=== PATIENT | male | born 2000 | race Caucasian/White ===

== ENCOUNTER 2023-11-24 11:47 | Inpatient (IN) | payer MEDICARE, MEDICAID ==
[~2023-11-24] VITALS: Ht 180.3 cm; Wt 107.0 kg
[2023-11-24 14:53] LABS: Basophils # (auto) 0 10 ^3/uL (0-0.2); Basophils % (auto) 0.3 % (0.0-2.0); Eosinophils # (auto) 0.1 10 ^3/uL (0-0.8); Eosinophils % (auto) 0.6 % (0.0-7.0); Hematocrit 47.9 % (41.0-53.0); Lymphocytes # (auto) 2.3 10 ^3/uL (0.4-5.4); Lymphocytes % (auto) 16.6 % (10.0-50.0); Mean Corpuscular Hemoglobin 29.1 pg (28.0-32.0); Mean Corpuscular Hgb Conc. 33.3 g/dL (32.0-36.0); Mean Corpuscular Volume 87.3 fL (80.0-100.0); Monocytes # (auto) 0.9 10 ^3/uL (0-1.3); Monocytes % (auto) 6.5 % (0.0-12.0); Neutrophils # (auto) 10.7 10 ^3/uL (1.6-8.6); Nucleated Red Blood Cells % 0.2 %; Red Blood Cells 5.48 10^6/uL (4.5-5.90); Red Cell Distribution Width 13.5 % (11.8-14.3); White Blood Cell 14.1 10^3/uL (4.4-10.8)
[2023-11-24 14:57] VITALS: RESP 16; O2SAT 97
[2023-11-24 14:59] LABS: Chloride 106 mmol/L (98-107); Potassium 4.6 mmol/L (3.5-5.1); Sodium 139 mmol/L (136-145)
[2023-11-24 15:00] LABS: Anion Gap 6 (5-15); Calcium 10.2 mg/dL (8.7-10.4); Carbon Dioxide 27 mmol/L (20-30)
[2023-11-24 15:05] LABS: BUN/Creatinine Ratio 15.8 (10.0-20.0); Blood Urea Nitrogen 15 mg/dL (9-23); Glucose 114 mg/dL (74-106)
[2023-11-24 15:11] LABS: INR 1.02 (0.9-1.15); Partial Thromboplastin Time 29.7 SEC (24.5-34.5); Prothrombin Time 10.7 sec (9.3-11.8)
[2023-11-24 15:42] LABS: Urine Bacteria NONE SEEN /hpf (None Seen); Urine Blood Negative /uL (Negative); Urine Clarity Clear (Clear); Urine Color Yellow (Yellow); Urine Protein, UAD Negative (Negative); Urine Specific Gravity 1.022 (1.001-1.035); Urine Urobilinogen Normal (Negative); Urine WBC 1 /hpf (0 - 3)
[2023-11-24] MEDS: metroNIDAZOLE 500MG/100ML 100 ML IV ONE (18:30)
[2023-11-24] MEDS: levoFLOXacin 500MG 100 ML IV ONE (18:46)
[2023-11-24] MEDS: SODIUM CHLORIDE 0.9% 1,000 ML IV SCH (18:46)
[2023-11-24 19:30] VITALS: PULSE 75; RESP 12; O2SAT 97
[2023-11-24 22:10] VITALS: BP 140/75; PULSE 73; RESP 16; TEMP 98.3; O2SAT 98
[2023-11-24 22:28] LABS: Erythrocyte Sedimentation Rate 2 mm/hr (0-20)
[2023-11-24 23:09] VITALS: PULSE 73; RESP 16; O2SAT 98
[2023-11-24] MEDS: PANTOPRAZOLE 40 MG/10 ML VIAL INJ IV SCH (23:39)
[2023-11-25] VITALS (7 sets, daily range): BP systolic 104–125; BP diastolic 52–69; PULSE 61–86; RESP 14–20; TEMP 97.8–98.6; O2SAT 94–97
[2023-11-25] MEDS: metroNIDAZOLE 500MG/100ML 100 ML IV SCH (05:15)
[2023-11-25 06:24] LABS: Basophils # (auto) 0.1 10 ^3/uL (0-0.2); Basophils % (auto) 0.6 % (0.0-2.0); Eosinophils # (auto) 0.2 10 ^3/uL (0-0.8); Eosinophils % (auto) 2.2 % (0.0-7.0); Hematocrit 44.5 % (41.0-53.0); Lymphocytes # (auto) 3.5 10 ^3/uL (0.4-5.4); Lymphocytes % (auto) 30.6 % (10.0-50.0); Mean Corpuscular Hemoglobin 29.6 pg (28.0-32.0); Mean Corpuscular Hgb Conc. 33.8 g/dL (32.0-36.0); Mean Corpuscular Volume 87.5 fL (80.0-100.0); Monocytes % (auto) 9.1 % (0.0-12.0); Neutrophils # (auto) 6.5 10 ^3/uL (1.6-8.6); Neutrophils % (auto) 57.5 % (37.0-80.0); Red Blood Cells 5.08 10^6/uL (4.5-5.90); Red Cell Distribution Width 13.8 % (11.8-14.3); White Blood Cell 11.3 10^3/uL (4.4-10.8)
[2023-11-25 06:40] LABS: Alanine Aminotransferase 53 U/L (7-40); Albumin 4.2 g/dL (3.2-4.8); Alkaline Phosphatase 62 U/L (46-116); Anion Gap 5 (5-15); Aspartate Aminotransferase 25 U/L (13-40); Blood Urea Nitrogen 10 mg/dL (9-23); Carbon Dioxide 28 mmol/L (20-30); Chloride 108 mmol/L (98-107); Glucose 89 mg/dL (74-106); LDL Cholesterol 100 mg/dL (< 100); Potassium 4.2 mmol/L (3.5-5.1); Sodium 141 mmol/L (136-145); Triglycerides 231 mg/dL (< 150)
[2023-11-25 06:41] LABS: Cholesterol 158 mg/dL (< 200); HDL Cholesterol 24 mg/dL (40-59)
[2023-11-25 06:42] LABS: Bilirubin, Total 0.7 mg/dL (0.2-1.0); Total Protein 6.6 g/dL (5.7-8.2)
[2023-11-25 08:44] LABS: Hepatitis B Surface Antigen Negative (Negative)
[2023-11-25 09:05] LABS: Hepatitis C Antibody Negative (Negative)
[2023-11-25] MEDS: levoFLOXacin 500MG 100 ML IV SCH (10:05)
[2023-11-25] MEDS: SODIUM CHLORIDE 0.9% 1,000 ML IV SCH (14:00)
[2023-11-26] VITALS (7 sets, daily range): BP systolic 101–112; BP diastolic 53–71; PULSE 58–85; RESP 16–20; TEMP 97.4–98.3; O2SAT 94–98
[2023-11-26 05:32] LABS: Basophils # (auto) 0 10 ^3/uL (0-0.2); Basophils % (auto) 0.4 % (0.0-2.0); Eosinophils # (auto) 0.3 10 ^3/uL (0-0.8); Hematocrit 43.6 % (41.0-53.0); Hemoglobin 14.7 g/dL (13.5-17.5); Lymphocytes # (auto) 3.1 10 ^3/uL (0.4-5.4); Mean Corpuscular Hemoglobin 29.4 pg (28.0-32.0); Mean Corpuscular Hgb Conc. 33.7 g/dL (32.0-36.0); Mean Corpuscular Volume 87.1 fL (80.0-100.0); Monocytes # (auto) 0.9 10 ^3/uL (0-1.3); Monocytes % (auto) 8.6 % (0.0-12.0); Neutrophils # (auto) 6.4 10 ^3/uL (1.6-8.6); Nucleated Red Blood Cells % 0.1 %; Red Blood Cells 5.01 10^6/uL (4.5-5.90); Red Cell Distribution Width 13.6 % (11.8-14.3); White Blood Cell 10.8 10^3/uL (4.4-10.8)
[2023-11-26 05:39] LABS: Chloride 108 mmol/L (98-107); Potassium 3.8 mmol/L (3.5-5.1); Sodium 140 mmol/L (136-145)
[2023-11-26 05:40] LABS: Anion Gap 6 (5-15); Calcium 9.3 mg/dL (8.5-10.1); Carbon Dioxide 26 mmol/L (20-30)
[2023-11-26 05:45] LABS: BUN/Creatinine Ratio 9.1 (10.0-20.0); Blood Urea Nitrogen 8 mg/dL (9-23); Glucose 94 mg/dL (74-106)
[2023-11-26] MEDS: GOLYTELY 4L KIT PO ONE (13:35)
[2023-11-26] MEDS: ONDANSETRON HCL 4 MG/2 ML VIAL IV PRN (17:37)
[2023-11-27] VITALS (8 sets, daily range): BP systolic 97–130; BP diastolic 6–75; PULSE 58–86; RESP 14–18; TEMP 97.4–98.3; O2SAT 94–99
[2023-11-27] MEDS: MAGNESIUM CITRATE SOLUTION 300 ML BTL PO ONE (05:39)
[2023-11-27] MEDS: GOLYTELY 4L KIT PO ONE (05:45)
[2023-11-27] MEDS ORDERED: ONDANSETRON HCL 4 MG/2 ML VIAL ONE (12:56)
[2023-11-27] MEDS ORDERED: MIDAZOLAM HCL 2MG/2ML 2ml VIAL (1mg/ml) ONE (12:56)
[2023-11-27] MEDS ORDERED: PROPOFOL 10 MG/ML 20 ML IV ONE (12:56)
[2023-11-27] MEDS ORDERED: GLYCOPYRROLATE 0.2 MG/ML 1ML VIAL ONE (13:13)
[2023-11-27] MEDS ORDERED: ePHEDrine SULFATE 50 MG/ML AMP ONE ×2 (13:23→13:26)
[2023-11-27] MEDS ORDERED: HYDROmorphone HCL 2 MG/ML VL/or syr IV PRN (13:45)
[2023-11-27] MEDS ORDERED: ONDANSETRON HCL 4 MG/2 ML VIAL IV PRN (13:45)
[2023-11-28] VITALS (7 sets, daily range): BP systolic 100–134; BP diastolic 64–77; PULSE 68–94; RESP 16–19; TEMP 97.9–98.4; O2SAT 94–98
[2023-11-28 05:49] LABS: Basophils # (auto) 0.1 10 ^3/uL (0-0.2); Basophils % (auto) 0.8 % (0.0-2.0); Eosinophils # (auto) 0.3 10 ^3/uL (0-0.8); Eosinophils % (auto) 2.6 % (0.0-7.0); Hematocrit 41.8 % (41.0-53.0); Lymphocytes # (auto) 2.7 10 ^3/uL (0.4-5.4); Lymphocytes % (auto) 27.3 % (10.0-50.0); Mean Corpuscular Hemoglobin 29.5 pg (28.0-32.0); Mean Corpuscular Hgb Conc. 33.4 g/dL (32.0-36.0); Mean Corpuscular Volume 88.1 fL (80.0-100.0); Monocytes # (auto) 0.9 10 ^3/uL (0-1.3); Neutrophils # (auto) 6.1 10 ^3/uL (1.6-8.6); Neutrophils % (auto) 60.3 % (37.0-80.0); Red Blood Cells 4.75 10^6/uL (4.5-5.90); Red Cell Distribution Width 13.9 % (11.8-14.3)
[2023-11-28 06:10] LABS: Anion Gap 6 (5-15); Carbon Dioxide 26 mmol/L (20-30); Chloride 109 mmol/L (98-107); Potassium 3.8 mmol/L (3.5-5.1); Sodium 141 mmol/L (136-145)
[2023-11-28 06:15] LABS: Glucose 96 mg/dL (74-106)
[2023-11-28 06:16] LABS: BUN/Creatinine Ratio 10.1 (10.0-20.0); Blood Urea Nitrogen 9 mg/dL (9-23)
[2023-11-29 05:00] VITALS: BP 106/61; PULSE 69; RESP 17; TEMP 98.3; O2SAT 95
[2023-11-29 07:00] LABS: INR 1.08 (0.9-1.15); Partial Thromboplastin Time 31.3 SEC (24.5-34.5); Prothrombin Time 11.3 sec (9.3-11.8)
[2023-11-29] MEDS ORDERED: MEPERIDINE HCL (50 MG/ML) 1 ML VIAL ONE (07:40)
[2023-11-29] MEDS ORDERED: fentaNYL CITRATE 100 MCG/2 ML VL ONE (07:40)
[2023-11-29] MEDS ORDERED: DexAMETHasone SOD PHOS 10MG/1ML VIAL INJ ONE (07:41)
[2023-11-29] MEDS ORDERED: ROCURONIUM 10MG/ML 10ML VIAL IV ONE (07:41)
[2023-11-29] MEDS ORDERED: MIDAZOLAM HCL 2MG/2ML 2ml VIAL (1mg/ml) ONE (07:41)
[2023-11-29] MEDS ORDERED: PROPOFOL 10 MG/ML 20 ML IV ONE (07:41)
[2023-11-29] MEDS ORDERED: SODIUM CHLORIDE LOCK 10 ML ONE (07:41)
[2023-11-29] MEDS ORDERED: ONDANSETRON HCL 4 MG/2 ML VIAL ONE (07:41)
[2023-11-29] MEDS: BUPIVACAINE 0.5% P/F INJ 10 ML VIAL ONE (09:38)
[2023-11-29 09:52] VITALS: O2SAT 98
[2023-11-29] MEDS ORDERED: MORPHINE SULFATE INJ 2 MG/ml SYRG IV PRN (10:00)
[2023-11-29] MEDS ORDERED: HYDROmorphone HCL 2 MG/ML VL/or syr IV PRN ×2 (10:00)
[2023-11-29] MEDS: METOCLOPRAMIDE HCL 5MG/ml INJ 2ml VIAL IV PRN (10:48)
[2023-11-29 13:00] VITALS: BP 126/87; PULSE 69; RESP 16; TEMP 97.3; O2SAT 100
[2023-11-29] MEDS ORDERED: METOCLOPRAMIDE HCL 5MG/ml INJ 2ml VIAL IV PRN (13:15)
[2023-11-29] MEDS: HYDROcodone-ACET 5/325MG TAB PO PRN (14:31)
[2023-11-29] MEDS: MORPHINE SULFATE INJ 2 MG/ml SYRG IV PRN ×2 (15:36→20:13)
[2023-11-29 17:00] VITALS: BP 125/94; PULSE 88; RESP 16; TEMP 97.8; O2SAT 98
[2023-11-29 20:00] VITALS: BP 130/89; PULSE 80; RESP 18; RESP 21; TEMP 98.2
[2023-11-29 22:00] VITALS: BP 123/90; PULSE 80; RESP 20; TEMP 98.2; O2SAT 95
[2023-11-30] VITALS (7 sets, daily range): BP systolic 113–138; BP diastolic 63–76; PULSE 69–84; RESP 16–20; TEMP 97.8–99.2; O2SAT 74–98
[2023-11-30 06:46] LABS: Hematocrit 43.7 % (41.0-53.0); Hemoglobin 14.7 g/dL (13.5-17.5)
[2023-11-30] MEDS: GELATIN 1 SPONGE SIZE 100 TOP ONE (13:51)
[2023-11-30] MEDS: HYDROcodone-ACET 5/325MG TAB PO PRN (14:53)
[2023-11-30] MEDS: MAGNESIUM CITRATE SOLUTION 300 ML BTL PO ONE (15:47)
[2023-11-30] MEDS: LIDOCAINE 2% JELLY 11ml (GLYDO) ONE (15:51)
[2023-11-30] MEDS: DOCUSATE SOD 100 MG CAP PO PRN (18:53)
[2023-11-30] MEDS: FLUTICASONE PROP NASAL SPR 0.05 % (50MCG) 16GM EACHNOSTRI SCH (22:33)
[2023-12-01] VITALS (7 sets, daily range): BP systolic 99–123; BP diastolic 47–70; PULSE 69–84; RESP 16–19; TEMP 98.1–98.6; O2SAT 92–96
[2023-12-01] MEDS ORDERED: HYDR-4902 PO ×2 (10:54→11:03)
[2023-12-01] MEDS ORDERED: DOCU-265 PO ×2 (10:54→11:03)
[2023-12-01] MEDS ORDERED: METR-344 PO (11:03)
[2023-12-01] MEDS ORDERED: UROJET2 TOP (11:03)
[2023-12-01] MEDS ORDERED: LEVO500T91 PO (11:03)
[2023-12-01] MEDS: LIDOCAINE 2% TOPICAL JELLY 5 ML URJT TOP PRN (12:06)
[2023-12-02] VITALS (7 sets, daily range): BP systolic 117–137; BP diastolic 68–94; PULSE 75–109; RESP 17–18; TEMP 98.2–98.7; O2SAT 93–99
[2023-12-02] MEDS: POLYETHYLENE GLYCOL 17 GM PWDR PO ONE (12:01)
[2023-12-02] MEDS: LACTULOSE 20Gm/30ML SOLN PO PRN (15:51)
[2023-12-03 00:24] VITALS: BP 124/94; PULSE 97; RESP 17; TEMP 98.2; O2SAT 96
[2023-12-03 05:00] VITALS: BP 109/64; PULSE 95; RESP 18; TEMP 98.4; O2SAT 96
[2023-12-03] MEDS ORDERED: DOCUSATE SOD 100 MG CAP PO SCH (10:00)
== END 2023-12-03 07:50 | disposition home or self-care (01) | DRG 348 ==
LOC: ER 11:47 → CENTRAL 18:31 → OVERFLOW 18:31 → CENTRAL 22:20
PROVIDERS: ADMIT Nurse Practitioner Family; ATTEND Nurse Practitioner Acute Care
PROC: 0DJD8ZZ Inspection of Lower Intestinal Tract, Via Natural or Artificial Opening Endoscopic (ICD-10-PCS; principal; 2023-11-27 12:59)
PROC: 06BY0ZC Excision of Hemorrhoidal Plexus, Open Approach (ICD-10-PCS; 2023-11-29)
DX: K64.8 Other hemorrhoids (principal); F84.0 Autistic disorder; K62.5 Hemorrhage of anus and rectum; D72.829 Elevated white blood cell count, unspecified; K58.9 Irritable bowel syndrome, unspecified; K76.0 Fatty (change of) liver, not elsewhere classified; K64.5 Perianal venous thrombosis; E78.5 Hyperlipidemia, unspecified; E66.9 Obesity, unspecified; J45.909 Unspecified asthma, uncomplicated; Z88.0 Allergy status to penicillin; Z88.3 Allergy status to other anti-infective agents; Z91.048 Other nonmedicinal substance allergy status; Z68.32 Body mass index [BMI] 32.0-32.9, adult
CPT/HCPCS: 36415; 74176; 80048; 80053; 80061; 81001; 82270; 85014; 85018; 85025; 85048; 85610; 85652; 85730; 86141; 86803; 86850; 86900; 86901; 87040; 87081; 87340; 96365; 96368; 97110; 97116; 97163; 97530; C9113; G0378; J1100; J1956; J2250; J2405; J2704; J3490

== ENCOUNTER 2023-12-10 17:35 | Inpatient (IN) | payer MEDICARE, MEDICAID ==
[~2023-12-10] VITALS: Ht 175.3 cm; Wt 105.6 kg
[~2023-12-10 17:35] MED LIST: DOCU-265 PO; HYDR-4902 PO; LEVO500T91 PO; METR-344 PO; UROJET2 TOP
[2023-12-10 19:11] LABS: Basophils # (auto) 0.2 10 ^3/uL (0-0.2); Basophils % (auto) 1.2 % (0.0-2.0); Eosinophils # (auto) 0.3 10 ^3/uL (0-0.8); Eosinophils % (auto) 2.3 % (0.0-7.0); Hematocrit 48.2 % (41.0-53.0); Hemoglobin 15.8 g/dL (13.5-17.5); Lymphocytes # (auto) 4.1 10 ^3/uL (0.4-5.4); Lymphocytes % (auto) 30.3 % (10.0-50.0); Mean Corpuscular Hemoglobin 29.1 pg (28.0-32.0); Mean Corpuscular Hgb Conc. 32.9 g/dL (32.0-36.0); Mean Corpuscular Volume 88.4 fL (80.0-100.0); Monocytes # (auto) 1.1 10 ^3/uL (0-1.3); Neutrophils # (auto) 7.9 10 ^3/uL (1.6-8.6); Neutrophils % (auto) 58.2 % (37.0-80.0); Nucleated Red Blood Cells % 0.1 %; Red Blood Cells 5.45 10^6/uL (4.5-5.90); Red Cell Distribution Width 13.9 % (11.8-14.3); White Blood Cell 13.5 10^3/uL (4.4-10.8)
[2023-12-10 19:22] LABS: Chloride 104 mmol/L (98-107); Potassium 4.7 mmol/L (3.5-5.1); Sodium 138 mmol/L (136-145)
[2023-12-10 19:23] LABS: Anion Gap 6 (5-15); Calcium 9.4 mg/dL (8.5-10.1); Carbon Dioxide 28 mmol/L (20-30)
[2023-12-10 19:28] LABS: BUN/Creatinine Ratio 16.1 (10.0-20.0); Blood Urea Nitrogen 15 mg/dL (9-23); Glucose 110 mg/dL (74-106)
[2023-12-10] MEDS ORDERED: ACETAMINOPHEN 325 MG TAB PO PRN (21:00)
[2023-12-10] MEDS ORDERED: ONDANSETRON HCL 4 MG/2 ML VIAL IV PRN (21:00)
[2023-12-11] MEDS: LACTULOSE 20Gm/30ML SOLN PO SCH (02:23)
[2023-12-11 02:24] VITALS: PULSE 61; RESP 16; O2SAT 99
[2023-12-11] MEDS: DOCUSATE SOD 100 MG CAP PO SCH (02:24)
[2023-12-11] MEDS: MAGNESIUM CITRATE SOLUTION 300 ML BTL PO ONE ×2 (02:24→20:00)
[2023-12-11 09:50] LABS: Basophils # (auto) 0 10 ^3/uL (0-0.2); Basophils % (auto) 0.4 % (0.0-2.0); Eosinophils # (auto) 0.1 10 ^3/uL (0-0.8); Eosinophils % (auto) 1.1 % (0.0-7.0); Hematocrit 46.4 % (41.0-53.0); Hemoglobin 15.6 g/dL (13.5-17.5); Lymphocytes % (auto) 17.5 % (10.0-50.0); Mean Corpuscular Hemoglobin 29.4 pg (28.0-32.0); Mean Corpuscular Hgb Conc. 33.6 g/dL (32.0-36.0); Mean Corpuscular Volume 87.5 fL (80.0-100.0); Monocytes # (auto) 0.8 10 ^3/uL (0-1.3); Monocytes % (auto) 6.9 % (0.0-12.0); Neutrophils # (auto) 8.5 10 ^3/uL (1.6-8.6); Neutrophils % (auto) 74.1 % (37.0-80.0); Red Cell Distribution Width 13.5 % (11.8-14.3); White Blood Cell 11.5 10^3/uL (4.4-10.8)
[2023-12-11] MEDS: PANTOPRAZOLE 40 MG/10 ML VIAL INJ IV SCH (10:15)
[2023-12-11 10:20] LABS: Alanine Aminotransferase 68 U/L (7-40); Alkaline Phosphatase 61 U/L (46-116); Anion Gap 6 (5-15); Aspartate Aminotransferase 34 U/L (13-40); Blood Urea Nitrogen 13 mg/dL (9-23); Calcium 9.7 mg/dL (8.5-10.1); Carbon Dioxide 28 mmol/L (20-30); Chloride 104 mmol/L (98-107); Glucose 86 mg/dL (74-106); Potassium 4.1 mmol/L (3.5-5.1); Sodium 138 mmol/L (136-145)
[2023-12-11 10:21] LABS: Bilirubin, Total 0.7 mg/dL (0.2-1.0); Total Protein 7.9 g/dL (5.7-8.2)
[2023-12-11 10:24] LABS: INR 1.12 (0.9-1.15); Prothrombin Time 11.7 sec (9.3-11.8)
[2023-12-11 10:30] LABS: CRP High Sensitivity 0.25 mg/dL (<1.0)
[2023-12-11 10:37] LABS: Magnesium 2.4 mg/dL (1.6-2.6)
[2023-12-11 10:56] LABS: Urine Bacteria NONE SEEN /hpf (None Seen); Urine Blood Negative /uL (Negative); Urine Clarity Clear (Clear); Urine Color Yellow (Yellow); Urine Mucus FEW (None Seen); Urine Protein, UAD Negative (Negative); Urine Specific Gravity 1.013 (1.001-1.035); Urine Urobilinogen Normal (Negative); Urine WBC <1 /hpf (0 - 3)
[2023-12-11] MEDS: GASTROGRAFIN 120 ML SOL ONE (11:59)
[2023-12-11] MEDS: HYDROcodone-ACET 5/325MG TAB PO PRN (14:18)
[2023-12-11 15:19] VITALS: BP 115/72; PULSE 73; RESP 18; TEMP 98; O2SAT 96
[2023-12-11 16:45] VITALS: BP_SYST 100; BP_SYST 115; BP_DIAS 63; BP_DIAS 72; PULSE 128; PULSE 73; RESP 18; TEMP 98; TEMP 98.5; O2SAT 95; O2SAT 96
[2023-12-11 20:00] VITALS: PULSE 81; RESP 18; O2SAT 98
[2023-12-11 22:00] VITALS: BP 112/66; PULSE 81; RESP 18; TEMP 97.7; O2SAT 98
[2023-12-12 05:00] VITALS: BP 121/58; PULSE 67; RESP 16; TEMP 97.4; O2SAT 93
[2023-12-12 05:59] LABS: Basophils # (auto) 0.1 10 ^3/uL (0-0.2); Basophils % (auto) 0.6 % (0.0-2.0); Eosinophils # (auto) 0.3 10 ^3/uL (0-0.8); Eosinophils % (auto) 3.3 % (0.0-7.0); Hematocrit 43.5 % (41.0-53.0); Hemoglobin 14.4 g/dL (13.5-17.5); Lymphocytes # (auto) 3.1 10 ^3/uL (0.4-5.4); Lymphocytes % (auto) 34.5 % (10.0-50.0); Mean Corpuscular Hemoglobin 29.2 pg (28.0-32.0); Mean Corpuscular Hgb Conc. 33.1 g/dL (32.0-36.0); Mean Corpuscular Volume 88.1 fL (80.0-100.0); Monocytes % (auto) 10.8 % (0.0-12.0); Neutrophils # (auto) 4.6 10 ^3/uL (1.6-8.6); Neutrophils % (auto) 50.8 % (37.0-80.0); Red Blood Cells 4.94 10^6/uL (4.5-5.90); Red Cell Distribution Width 13.4 % (11.8-14.3); White Blood Cell 9.1 10^3/uL (4.4-10.8)
[2023-12-12 06:09] LABS: Chloride 105 mmol/L (98-107); Potassium 4.1 mmol/L (3.5-5.1); Sodium 138 mmol/L (136-145)
[2023-12-12 06:10] LABS: Anion Gap 6 (5-15); Calcium 9.2 mg/dL (8.7-10.4); Carbon Dioxide 27 mmol/L (20-30)
[2023-12-12 06:15] LABS: BUN/Creatinine Ratio 10.5 (10.0-20.0); Blood Urea Nitrogen 9 mg/dL (9-23); Glucose 93 mg/dL (74-106)
[2023-12-12 09:00] VITALS: BP 120/74; PULSE 72; RESP 20; TEMP 98.1; O2SAT 97
[2023-12-12 13:00] VITALS: BP 118/70; PULSE 78; RESP 20; TEMP 98; O2SAT 97
[2023-12-12] MEDS: HYDROCORTISONE ACET 25 MG RECTAL SUPP PR ONE (15:00)
[2023-12-12 17:00] VITALS: BP 104/67; PULSE 66; RESP 18; TEMP 98.2; O2SAT 98
[2023-12-12 20:00] VITALS: PULSE 68; RESP 16; O2SAT 95
[2023-12-12 21:17] VITALS: BP 105/55; PULSE 68; RESP 16; TEMP 98.4; O2SAT 95
[2023-12-13 00:58] VITALS: BP 124/59; PULSE 73; RESP 16; TEMP 98; O2SAT 98
[2023-12-13 05:00] VITALS: BP 110/61; PULSE 66; RESP 16; TEMP 98; O2SAT 98
[2023-12-13 09:00] VITALS: BP 119/69; PULSE 70; RESP 18; TEMP 98.2; O2SAT 94
[2023-12-13] MEDS ORDERED: LACT10SO3 PO (12:03)
[2023-12-13 13:00] VITALS: BP 108/73; PULSE 75; RESP 16; TEMP 98.3; O2SAT 94
[2023-12-13 13:16] VITALS: BP 108/73; PULSE 75; RESP 16; TEMP 98.3; O2SAT 94
== END 2023-12-13 16:58 | disposition home or self-care (01) | DRG 389 ==
LOC: ER 17:35 → OVERFLOW 21:28 → WEST WING 12-11 15:20
PROVIDERS: ADMIT Internal Medicine; ATTEND Emergency Medicine
DX: K56.41 Fecal impaction (principal); F84.0 Autistic disorder; R65.10 Systemic inflammatory response syndrome (SIRS) of non-infectious origin without acute organ dysfunction; K58.9 Irritable bowel syndrome, unspecified; D72.829 Elevated white blood cell count, unspecified; E66.9 Obesity, unspecified; E78.5 Hyperlipidemia, unspecified; J45.909 Unspecified asthma, uncomplicated; K64.5 Perianal venous thrombosis; Z88.0 Allergy status to penicillin; Z88.3 Allergy status to other anti-infective agents; Z91.048 Other nonmedicinal substance allergy status; Z88.1 Allergy status to other antibiotic agents; Z88.8 Allergy status to other drugs, medicaments and biological substances; Z79.899 Other long term (current) drug therapy; Z79.891 Long term (current) use of opiate analgesic; Z79.1 Long term (current) use of non-steroidal anti-inflammatories (NSAID); Z68.34 Body mass index [BMI] 34.0-34.9, adult
CPT/HCPCS: 36415; 74018; 74176; 74250; 80048; 80053; 81001; 83735; 84443; 85025; 85610; 86141; C9113; G0378